=== PATIENT | male | born 1975 | race Hispanic/Latino ===

== ENCOUNTER 2022-09-14 17:52 | Emergency (ER) | payer OTHER ==
[2022-09-14] MEDS ORDERED: Ketorolac Tromethamine 30 MG/ML VIAL ONE (18:15)
== END 2022-09-14 18:22 | disposition home or self-care (01) ==
LOC: NAV ERS 17:52
DX: L03.114 Cellulitis of left upper limb (principal)
CPT/HCPCS: 96372; 99283; J1885